=== PATIENT | male | born 1960 | race Caucasian/White ===

== ENCOUNTER 2019-01-05 15:39 | Observation (INO) ==
[2019-01-05 16:37] LABS: HEMATOCRIT 37.9 % (42.0-52.0); HEMOGLOBIN 13.1 g/dL (14.0-18.0); MCH 31.6 PG (27-31); MCHC 34.6 g/dL (33-37); MCV 91.5 FL (81-99); RBC 4.14 XMIL (4.7-6.1); WBC 22.41 X1000 (4.8-10.8)
[2019-01-05 16:38] LABS: BASO# 0.05 X1000 (0.0-0.2); BASO% 0.2 % (0.0-0.8); EOS% 0.4 % (0.0-10.0); IMM GRAN# 0.05 X1000 (0.0-0.04); IMM GRAN% 0.2 % (0.0-0.5); LYMPH# 6.18 X1000 (1.2-3.4); LYMPH% 27.6 % (20.5-51.1); MONO# 3.24 X1000 (0.11-0.59); MONO% 14.5 % (1.7-9.3); MPV 10.7 FL (7.4-10.4); NEUT# 12.79 X1000 (1.4-6.5); NEUT% 57.1 % (42.2-75.2); PLT 223 X1000 (130-400); RDW 13.9 % (11.5-14.5)
[2019-01-05 16:50] LABS: AGAP 9; ALBUMIN 4.1 g/dL (3.5-5.0); ALKALINE PHOSPHATASE 72 U/L (32-122); BUN 14 mg/dL (8-22); CALCIUM 8.6 mg/dL (8.8-10.2); CHLORIDE 102 mmol/L (98-107); COSMO 273; CREATININE 0.9 mg/dL (0.7-1.2); ESTIMATED GFR > 60; GLUCOSE 108 mg/dL (70-104); GOT 13 U/L (10-34); GPT 17 U/L (10-44); LIPASE 13 U/L (13-60); POTASSIUM 3.9 mmol/L (3.5-5.1); SODIUM 136 mmol/L (136-145); TCO2 26 mmol/L (25-35); TOTAL PROTEIN 6.3 g/dL (6.3-8.3)
[2019-01-05 17:08] LABS: BILIRUBIN URINE NEGATIVE (NEGATIVE); BLOOD URINE NEGATIVE (NEGATIVE); CLARITY CLEAR (CLEAR); COLOR YELLOW; GLUCOSE URINE NEGATIVE (NEGATIVE); KETONE URINE 1+(Small) mg/dL (NEGATIVE); LEUKOCYTES URINE TRACE (NEGATIVE); NITRITE URINE NEGATIVE (NEGATIVE); PROTEIN URINE TRACE mg/dL (NEGATIVE); UROBILINOGEN URINE 1 mg/dL
[2019-01-05 17:20] LABS: URINE BACTERIA 1+ /HFP; URINE CAST NONE SEEN /LPF; URINE CRYSTAL URIC ACID PRESENT /HPF; URINE EPITHELIAL CELLS <10 /HPF (<10); URINE SOURCE CLEAN CATCH; URINE WBC <10 /HPF (<10); URINE YEAST NONE SEEN /HPF
--- NOTE | 2019-01-05 18:02 | Diag Imaging Result Doc PS360 ---
EXAM: CT ABD/PELVIS W/IV CONT ONLY HISTORY: pain right quadrant TECHNIQUE: CT abdomen and pelvis with intravenous contrast COMPARISON: None. FINDINGS: No calcified gallstones or adjacent inflammation. Normal liver, spleen, pancreas, adrenal glands, and kidneys. No hydronephrosis. No aortic aneurysm. Prominent atherosclerosis. The appendix is inflamed and thickened. No adjacent free air or abscess. No bowel obstruction although there is stool throughout the colon. Normal prostate. Urinary bladder is only mildly distended. IMPRESSION: Acute appendicitis. This report was discussed with Dr. Ye in the [place] emergency room on 01/05/2019 at 6:00pm and was readback. This exam was performed using automated exposure control, adjustment of mA or kV according to patient size, and/or use of iterative reconstruction technique. Electronically signed by Chau Pat 01/05/2019 6:00 PM
[2019-01-05] MEDS ORDERED: ZOSYN 3.375 GM in NS 50 ML IV ONE (18:07)
[2019-01-05] MEDS ORDERED: NS 1,000 ML IV ONE (18:07)
[2019-01-05 19:00] LABS: INR 0.94
[2019-01-05 19:01] LABS: PTT 30.5 Seconds (22.3-41.8)
[2019-01-05] MEDS ORDERED: DIPRIVAN 1% ONE (20:35)
[2019-01-05] MEDS ORDERED: QUELICIN (DOSE) ONE (20:35)
[2019-01-05] MEDS ORDERED: XYLOCAINE-MPF 2% ONE (20:35)
[2019-01-05] MEDS ORDERED: MARCAINE 0.25% PF/EPI 1:200,000 ONE (20:42)
[2019-01-05] MEDS ORDERED: LR 1,000 ML ONE (20:43)
[2019-01-05] MEDS ORDERED: ZOFRAN ONE (21:30)
--- NOTE | 2019-01-05 21:30 | HISTORY AND PHYSICAL ---
DATE OF ADMISSION: 01/05/2019 HISTORY OF PRESENT ILLNESS: This 58-year-old gentleman is inpatient at [facility]. He developed abdominal pain localized in the right lower quadrant earlier today, came to [facility] where CT scan showed acute appendicitis. Prior to this, he was in his usual state of health. He has never had a colonoscopy. MEDICAL HISTORY: He has psychiatric history, but no heart or lung issues. Used to smoke, but he quit. Uses the patches currently. Apparently, does carry the diagnosis of COPD, it looks like based off his medications. He does have hyperlipidemia and hypertension as well. SURGICAL HISTORY: He has had a finger operation, but he has never had abdominal surgery. SOCIAL HISTORY: No alcohol or drugs currently. No tobacco currently. FAMILY HISTORY: Breast cancer in his mother. REVIEW OF SYSTEMS: Ten point negative. PHYSICAL EXAMINATION: General: His temperature is 100.4, pulse 103, blood pressure 162/84, oxygen saturation 97% on room air. General: He is alert, in no acute distress. HEENT: No scleral icterus. No cervical mass. Cardiovascular: Low-grade sinus tachycardia. Pulmonary: No increased work of breathing. Abdomen: Soft. He is focally tender in the right lower quadrant, but no diffuse peritonitis. Integument: Warm and dry without jaundice. Psychiatric: Appropriate affect, but is a little anxious to see me. Neurologic: No focal deficits. Peripheral vascular: No lower extremity edema. Lymphatic: No cervical or axillary adenopathy. LABS: White count 22, hematocrit 37, platelets 223. Creatinine 0.9. LFTs normal. Lipase normal. Lactate is normal. Urinalysis shows some trace white blood cells, small 1+ ketones. CT scan shows a dilated, fluid-filled appendix with stranding, scant amount of fluid associated with this, but no evidence of perforation. No abscess. ASSESSMENT AND PLAN: This is a 58-year-old gentleman with acute appendicitis. We discussed risks of bleeding, infection, damage to surrounding structures, conversion to open, anticipated recovery. He understands all this and consents to laparoscopic appendectomy. He has received Zosyn in the emergency department. We will go to the operating room this evening for this. cc: Gonzalo Espinoza MD
[2019-01-05] MEDS: MORPHINE ONE ×2 (22:29→22:33)
--- NOTE | 2019-01-05 22:43 | OPERATIVE NOTE ---
PROCEDURE DATE: 01/05/2019 PREOPERATIVE DIAGNOSIS: Acute appendicitis. POSTOPERATIVE DIAGNOSIS: Acute appendicitis. PROCEDURE PERFORMED: Laparoscopic appendectomy. ESTIMATED BLOOD LOSS: 10 mL. SPECIMENS: Appendix. ANESTHESIA: General. INDICATION: A 50-year-old gentleman who developed abdominal pain. CT scan showed acute appendicitis. OPERATIVE FINDINGS: There was a densely inflamed thickened appendix with early necrosis in the retrocecal location, densely adherent to the cecum. There was some cloudy fluid around it but no aron perforation. DRAINS: Luigi. OPERATIVE NOTE: Risks, benefits, and alternatives were discussed with patient and he consented to the procedure. Seen preoperatively, surgical site was confirmed. He was taken to the operating room and placed in supine position. General anesthesia induced. Swanson catheter was placed. Hair was removed with clippers and the abdomen was prepped with chlorhexidine solution and draped usual fashion. Time-out. Made a supraumbilical midline incision, carried this down to the fascia. The fascia was incised in open controlled fashion. We insufflated to 15 mmHg. After this, a 12 mm Justyn trocar was placed. We placed a 5 mm trocar in the suprapubic location, and a 12 mm trocar in the left lower quadrant lateral to inferior epigastric vessels. He was placed in Trendelenburg, left side down. Using blunt and LigaSure dissection, we were able to mobilize the appendix out of the retrocecal location, protecting the retroperitoneal structures as well as the terminal ileum and the cecum. It was densely adherent to the cecum, but we were able establish a plane and mobilize this. We took the mesoappendix with the LigaSure device, and then using a 45 mm gold load stapler, we stapled across the base of the appendix, which was healthy. We had good closure here and complete removal of the appendix. We irrigated copiously, noted hemostasis, suctioned all fluid until clear both in the right upper quadrant and pelvis. Given the dense inflammatory state and cloudy fluid, we elected to place a Luigi drain. We placed this through a right lower quadrant 5 mm trocar site, and the left lower quadrant trocar was closed with a Mg-Ang, and 0 Vicryl supraumbilical trocar was removed and noted to be hemostatic. We desufflated the abdomen, and brought the appendix with an EndoCatch bag out through the umbilical incision. Closed the fascia with interrupted 0 Vicryl sutures. The skin was closed with 4-0 Monocryl in subcuticular fashion. Dermabond was applied. Counts correct. He has woken, transferred to recovery. Swanson was removed. At the end of the case, I spoke with the sister. cc: Gonzalo Espinoza MD
[2019-01-05] MEDS ORDERED: ZOFRAN IV PRN (23:39)
[2019-01-06] MEDS: LR 1,000 ML IV SCH ×4 (08:15→19:52)
[2019-01-06] MEDS ORDERED: DESYREL PO PRN (11:22)
[2019-01-06] MEDS ORDERED: ALBUTEROL NEB INH PRN (11:22)
[2019-01-06] MEDS: NORCO-7.5 PO PRN ×2 (11:45→18:04)
[2019-01-06] MEDS: VALIUM PO SCH ×2 (13:16→18:01)
--- NOTE | 2019-01-06 13:50 | GENERAL SURGERY PROGRESS NOTE ---
DATE: 01/06/2019 SUBJECTIVE: Pain has been well controlled. No further fevers. Pulse 83, blood pressure 131/76, oxygen saturation 96% on 2 L.General: He is alert. Abdomen: Soft. ALETHEA drain serosanguineous. Incisions are intact. ASSESSMENT AND PLAN: A 58-year-old gentleman status post laparoscopic appendectomy. Will check a postvoid residual today. If he has high retention he may need a catheter placed. Otherwise will watch him today given his kind of social psychiatric issues but plan for home soon. cc: Gonzalo Espinoza MD
[2019-01-06] MEDS: NICODERM PATCH TD SCH (13:54)
[2019-01-06] MEDS: ADVAIR 100/50 DISKUS INH SCH (20:00)
[2019-01-06] MEDS ORDERED: NEURONTIN PO SCH (21:00)
[2019-01-06] MEDS ORDERED: SEROQUEL PO SCH (21:00)
[2019-01-06] MEDS ORDERED: CRESTOR PO SCH (21:00)
[2019-01-06] MEDS ORDERED: DEPAKOTE ER PO SCH ×2 (21:00)
[2019-01-07] MEDS ORDERED: SYNTHROID PO SCH (07:00)
[2019-01-07] MEDS: NICODERM PATCH TD SCH (08:12)
[2019-01-07] MEDS: VALIUM PO SCH ×3 (08:12→16:45)
[2019-01-07] MEDS: LR 1,000 ML IV SCH (08:12)
[2019-01-07] MEDS ORDERED: CYMBALTA PO SCH (09:00)
[2019-01-07] MEDS ORDERED: PERIDEX MT SCH (09:00)
[2019-01-07] MEDS: ADVAIR 100/50 DISKUS INH SCH (09:00)
[2019-01-07 16:17] VITALS: BP 153/91
--- NOTE | 2019-01-07 16:32 | GENERAL SURGERY PROGRESS NOTE ---
DATE: 01/07/2019 SUBJECTIVE: Feeling well. Bowels are functioning. Voiding. No fevers. No tachycardia. OBJECTIVE: Abdomen is soft. ALETHEA drain serosanguineous. DIAGNOSTIC STUDIES: No new labs this morning. ASSESSMENT AND PLAN: A 58-year-old gentleman with acute appendicitis status post laparoscopic appendectomy. He is doing well. Plan for him to either go back to [facility], or he will go to home. We will make sure the [place] people have made that determination. Otherwise, from a surgical standpoint, he is okay. I have given him postoperative instructions. We will see him back in a couple of days to remove his drain. cc: Gonzalo Espinoza MD
== END 2019-01-07 16:49 | disposition home health service (06) ==
LOC: P.ED 15:39 → 4N 15:39
PROVIDERS: ADMIT Surgery; ATTEND Surgery
CPT/HCPCS: 74177; 80053; 81001; 82550; 83605; 83690; 84153; 84484; 85025; 85610; 85730; 87040; 87088; 88304; 94640; 94761; A9270; J0330; J2270; J2405; J2543; J7030; J7120; Q9967; S0020